=== PATIENT | female | born 1990 | race Caucasian/White ===

== ENCOUNTER → 2017-02-13 | Outpatient (CLI) | payer OTHER ==
[~2017-02-13] MED LIST: AMOXICILLIN500 M3 PO; AMOXIL500 MG PO; AUGMENTIN 875875 MG PO; BACTRIM DS 8001 TA1 PO; BACTROBAN CREAM15 GM T; CEPHALEXIN500 M1 PO; CIPRO250 MG PO; CLARITIN10 MG PO; DIFLUCAN150 MG PO; FLAGYL500 MG PO; FLONASE ALLERG9.9 ML NS; HYDROCODONE BIT1 T11 PO; KEFLEX500 M1 PO; MACROBID100 M1 PO; MOTRIN600 MG PO; MOTRIN800 MG PO; Motrin,Rufen800 MG PO; NKHM; PYRIDIUM200 M1 PO; PYRIDIUM200 MG PO; ULTRAM50 MG PO; ZOFRAN ODT4 MG SL
== END | disposition home or self-care (01) ==
LOC: US 16:51
DX: O20.0 Threatened abortion (principal); Z3A.08 8 weeks gestation of pregnancy

== ENCOUNTER 2017-12-02 08:24 | Emergency (ER) | payer OTHER ==
[~2017-12-02] VITALS: Wt 49.9 kg
[2017-12-02 08:37] VITALS: BP 113/68
[2017-12-02 08:54] LABS: BILIRUBIN NEGATIVE (NEGATIVE); BLOOD 2+ (NEGATIVE); CLARITY SL CLOUDY (CLEAR); COLOR YELLOW (YELLOW); GLUCOSE NEGATIVE (NEGATIVE); KETONE TRACE (NEGATIVE); LEUKO ESTERASE NEGATIVE (NEGATIVE); NITRITE POSITIVE (NEGATIVE); PH 5.5 (5.0-9.0); SPECIFIC GRAVITY 1.025 (1.005-1.030); UROBILINOGEN 0.2 E.U./dl (0.2-1.0)
[2017-12-02 09:02] LABS: BACTERIA 2+
[2017-12-02 09:10] LABS: BASO % 0.1 % (0.0-1.0); EOS # 0.2 10*3/uL (0.0-0.4); EOS % 1.9 % (1.0-4.0); HEMATOCRIT 39.8 % (37.0-47.0); HEMOGLOBIN 13.5 g/dl (12.0-16.0); LYMPH # 2.2 10*3/uL (1.3-4.4); MEAN CELL VOLUME 91.9 fl (81.0-99.0); MEAN CORPUSCULAR HGB 31.2 pg (27.0-31.0); MEAN CORPUSCULAR HGB CONC 33.9 g/dl (33.0-37.0); MEAN PLATELET VOLUME 9.7 fl (9.6-12.3); MONO # 0.8 10*3/uL (0.1-1.0); MONO % 9.9 % (3.0-9.0); NEUT # 4.7 10*3/uL (2.3-7.9); NEUT % 59.7 % (47.0-73.0); PLATELET COUNT AUTOMATED 175 10*3/uL (130-400); RED BLOOD COUNT 4.33 10*6/uL (4.10-5.10); RED CELL DISTRI WIDTH 11.9 % (0-14.5); WHITE BLOOD COUNT 7.8 10*3/uL (4.8-10.8)
[2017-12-02 09:20] LABS: BUN 14 mg/dl (7-24); CHLORIDE 103 mmol/L (98-107); CREATININE 0.87 mg/dL (0.55-1.02); POTASSIUM 3.7 mmol/L (3.5-5.1); SODIUM 137 mmol/L (136-145)
[2017-12-02] MEDS ORDERED: MACROBID100 M1 PO (10:39)
== END 2017-12-02 10:55 | disposition home or self-care (01) ==
LOC: ED 08:24
PROVIDERS: Emergency Medicine
DX: N39.0 Urinary tract infection, site not specified (principal); F17.200 Nicotine dependence, unspecified, uncomplicated; Z33.1 Pregnant state, incidental; Z3A.01 Less than 8 weeks gestation of pregnancy

== ENCOUNTER 2018-02-16 17:49 | Emergency (ER) | payer OTHER ==
[~2018-02-16] VITALS: Wt 53.5 kg
[2018-02-16 19:10] LABS: BILIRUBIN NEGATIVE (NEGATIVE); BLOOD 1+ (NEGATIVE); CLARITY SL CLOUDY (CLEAR); COLOR YELLOW (YELLOW); GLUCOSE NEGATIVE (NEGATIVE); KETONE NEGATIVE (NEGATIVE); LEUKO ESTERASE NEGATIVE (NEGATIVE); NITRITE NEGATIVE (NEGATIVE); SPECIFIC GRAVITY >= 1.030 (1.005-1.030); UROBILINOGEN 0.2 E.U./dl (0.2-1.0)
[2018-02-16 19:22] LABS: EPITHELIAL CELLS TNTC
[2018-02-16 19:23] LABS: BACTERIA 2+
[2018-02-16] MEDS ORDERED: AMOXICILLIN500 M2 PO (20:06)
[2018-02-16 20:19] VITALS: BP 127/77
== END 2018-02-16 20:12 | disposition home or self-care (01) ==
LOC: ED 17:49
PROVIDERS: Nurse Practitioner Family
DX: O26.891 Other specified pregnancy related conditions, first trimester (principal); N89.8 Other specified noninflammatory disorders of vagina; J02.9 Acute pharyngitis, unspecified; H66.92 Otitis media, unspecified, left ear; Z79.899 Other long term (current) drug therapy; Z3A.13 13 weeks gestation of pregnancy

== ENCOUNTER → 2018-02-18 | Outpatient (CLI) | payer OTHER ==
[~2018-02-18] MED LIST changes: +AMOXICILLIN500 M2 PO
== END | disposition home or self-care (01) ==
LOC: US 12:51
DX: Z34.81 Encounter for supervision of other normal pregnancy, first trimester (principal); Z3A.16 16 weeks gestation of pregnancy

== ENCOUNTER → 2018-04-01 | Outpatient (CLI) | payer OTHER | END | disposition home or self-care (01) | LOC: US 16:49 | DX: Z34.82 Encounter for supervision of other normal pregnancy, second trimester (principal); Z3A.22 22 weeks gestation of pregnancy ==

== ENCOUNTER 2018-05-21 17:31 | Emergency (ER) | payer OTHER ==
[~2018-05-21] VITALS: Ht 160 cm; Wt 62.1 kg
[2018-05-21 17:35] VITALS: BP 102/68
[2018-05-21] MEDS ORDERED: CEPHALEXIN500 M1 PO (18:25)
== END 2018-05-21 18:35 | disposition home or self-care (01) ==
LOC: ED 17:31
DX: O98.813 Other maternal infectious and parasitic diseases complicating pregnancy, third trimester (principal); L02.211 Cutaneous abscess of abdominal wall; Z3A.29 29 weeks gestation of pregnancy

== ENCOUNTER 2018-06-10 13:05 | Emergency (ER) | payer OTHER ==
[~2018-06-10] VITALS: Ht 160 cm; Wt 63.5 kg
[2018-06-10 13:09] VITALS: BP 120/61
[2018-06-10 13:31] LABS: BILIRUBIN NEGATIVE (NEGATIVE); BLOOD NEGATIVE (NEGATIVE); CLARITY SL CLOUDY (CLEAR); COLOR YELLOW (YELLOW); GLUCOSE NEGATIVE (NEGATIVE); KETONE NEGATIVE (NEGATIVE); LEUKO ESTERASE TRACE (NEGATIVE); NITRITE NEGATIVE (NEGATIVE); PH 6.5 (5.0-9.0); UROBILINOGEN 0.2 E.U./dl (0.2-1.0)
[2018-06-10 14:12] LABS: HEMATOCRIT 33.7 % (37.0-47.0); HEMOGLOBIN 11.1 g/dl (12.0-16.0); MEAN CELL VOLUME 94.1 fl (81.0-99.0); MEAN CORPUSCULAR HGB CONC 32.9 g/dl (33.0-37.0); MEAN PLATELET VOLUME 10.3 fl (9.6-12.3); PLATELET COUNT AUTOMATED 155 10*3/uL (130-400); RED BLOOD COUNT 3.58 10*6/uL (4.10-5.10); RED CELL DISTRI WIDTH 13.2 % (0-14.5)
[2018-06-10 14:18] LABS: BACTERIA 3+; EPITHELIAL CELLS 16-20; RBC 0-2 rbc/hpf (0-2); WBC 41-50 wbc/hpf (0-5)
[2018-06-10 14:28] LABS: ALBUMIN 3.1 gm/dl (3.1-4.5); ALKALINE PHOSPHATASE 106 U/L (45-117); BUN 13 mg/dl (7-24); CHLORIDE 105 mmol/L (98-107); CREATININE 0.71 mg/dL (0.55-1.02); POTASSIUM 3.9 mmol/L (3.5-5.1); SGOT/AST 17 IU/L (3-35); SGPT/ALT 24 U/L (12-78); SODIUM 137 mmol/L (136-145)
[2018-06-10 14:34] LABS: TOTAL CELLS COUNTED 100 #CELLS
[2018-06-10 14:35] LABS: PLATELET SUFFICIENCY NORMAL (NORMAL)
[2018-06-10] MEDS ORDERED: AMINOPHYLLIN200 MG PO (15:03)
== END 2018-06-10 15:35 | disposition short-term general hospital (02) ==
LOC: ED 13:05
PROVIDERS: Physician Assistant
DX: O23.33 Infections of other parts of urinary tract in pregnancy, third trimester (principal); Z3A.32 32 weeks gestation of pregnancy

== ENCOUNTER 2019-05-26 11:46 | Emergency (ER) | payer OTHER ==
[~2019-05-26] VITALS: Ht 157.4 cm; Wt 49.9 kg
[~2019-05-26 11:46] MED LIST changes: +AMINOPHYLLIN200 MG PO
[2019-05-26 11:47] VITALS: BP 122/57
[2019-05-26 12:46] LABS: BILIRUBIN NEGATIVE (NEGATIVE); BLOOD TRACE-INTACT (NEGATIVE); CLARITY CLOUDY (CLEAR); COLOR YELLOW (YELLOW); GLUCOSE NEGATIVE (NEGATIVE); KETONE NEGATIVE (NEGATIVE); LEUKO ESTERASE TRACE (NEGATIVE); NITRITE POSITIVE (NEGATIVE); SPECIFIC GRAVITY 1.025 (1.005-1.030); UROBILINOGEN 0.2 E.U./dl (0.2-1.0)
[2019-05-26 13:02] LABS: BACTERIA 4+
[2019-05-26] MEDS ORDERED: DIFLUCAN150 MG PO (13:10)
[2019-05-26] MEDS ORDERED: LEVOFLOXACIN250 M2 PO (13:10)
== END 2019-05-26 13:11 | disposition home or self-care (01) ==
LOC: ED 11:46
PROVIDERS: Emergency Medicine
DX: N39.0 Urinary tract infection, site not specified (principal)

== ENCOUNTER 2020-01-01 01:34 | Emergency (ER) | payer OTHER ==
[~2020-01-01] VITALS: Ht 157.4 cm; Wt 49.9 kg
[~2020-01-01 01:34] MED LIST changes: +LEVOFLOXACIN250 M2 PO
[2020-01-01 02:19] LABS: BILIRUBIN NEGATIVE (NEGATIVE); BLOOD TRACE-INTACT (NEGATIVE); CLARITY SL CLOUDY (CLEAR); COLOR YELLOW (YELLOW); GLUCOSE NEGATIVE (NEGATIVE); KETONE NEGATIVE (NEGATIVE); LEUKO ESTERASE NEGATIVE (NEGATIVE); NITRITE POSITIVE (NEGATIVE); PH 6.5 (5.0-9.0); SPECIFIC GRAVITY 1.025 (1.005-1.030); UROBILINOGEN 0.2 E.U./dl (0.2-1.0)
[2020-01-01 02:27] LABS: BACTERIA 4+
[2020-01-01 02:28] LABS: WBC 0-2 wbc/hpf (0-5)
[2020-01-01 02:33] LABS: BASO % 0.1 % (0.0-1.0); EOS # 0.2 10*3/uL (0.0-0.4); HEMATOCRIT 36.3 % (37.0-47.0); HEMOGLOBIN 11.9 g/dl (12.0-16.0); LYMPH # 2.2 10*3/uL (1.3-4.4); LYMPH % 14.3 % (27.0-41.0); MEAN CELL VOLUME 91.4 fl (81.0-99.0); MEAN CORPUSCULAR HGB CONC 32.8 g/dl (33.0-37.0); MEAN PLATELET VOLUME 10.2 fl (9.6-12.3); MONO # 0.9 10*3/uL (0.1-1.0); MONO % 5.6 % (3.0-9.0); NEUT % 78.6 % (47.0-73.0); PLATELET COUNT AUTOMATED 197 10*3/uL (130-400); RED BLOOD COUNT 3.97 10*6/uL (4.10-5.10); RED CELL DISTRI WIDTH 11.9 % (0-14.5); WHITE BLOOD COUNT 15.3 10*3/uL (4.8-10.8)
[2020-01-01 02:48] LABS: ALBUMIN 3.9 gm/dl (3.1-4.5); ALKALINE PHOSPHATASE 59 U/L (45-117); BUN 17 mg/dl (7-24); CHLORIDE 109 mmol/L (98-107); CREATININE 1.04 mg/dL (0.55-1.02); LIPASE 90 U/L (73-393); POTASSIUM 3.6 mmol/L (3.5-5.1); SGOT/AST 13 IU/L (3-35); SGPT/ALT 30 U/L (12-78); SODIUM 140 mmol/L (136-145)
[2020-01-01 05:26] VITALS: BP 115/67
== END 2020-01-01 06:11 | disposition short-term general hospital (02) ==
LOC: ED 01:34
PROVIDERS: Emergency Medicine Emergency Medical Services
DX: O00.90 Unspecified ectopic pregnancy without intrauterine pregnancy (principal); R42 Dizziness and giddiness; Z3A.01 Less than 8 weeks gestation of pregnancy; Z79.2 Long term (current) use of antibiotics

== ENCOUNTER → 2020-03-02 | Outpatient (CLI) | payer OTHER | END | disposition home or self-care (01) | LOC: US 02-18 11:00 | DX: N60.01 Solitary cyst of right breast (principal) ==

== ENCOUNTER → 2020-08-16 | Outpatient (CLI) | payer OTHER | END | disposition home or self-care (01) | LOC: LAB 15:20 | PROVIDERS: ATTEND Internal Medicine Nephrology | DX: Z23 Encounter for immunization (principal) ==

== ENCOUNTER → 2020-08-28 | Outpatient (CLI) | payer OTHER | END | disposition home or self-care (01) | LOC: COVID19 02:44 | PROVIDERS: ATTEND Internal Medicine Nephrology | DX: Z20.828 Contact with and (suspected) exposure to other viral communicable diseases (principal) ==

== ENCOUNTER 2021-02-07 20:16 | Emergency (ER) | payer OTHER ==
[~2021-02-07] VITALS: Ht 160 cm; Wt 52.2 kg
[2021-02-07 20:24] VITALS: BP 133/86
== END 2021-02-07 20:38 | disposition home or self-care (01) ==
LOC: ED 20:16
DX: L30.9 Dermatitis, unspecified (principal); Z79.899 Other long term (current) drug therapy

== ENCOUNTER 2022-06-24 11:14 | Emergency (ER) | payer OTHER ==
[~2022-06-24] VITALS: Ht 157.4 cm; Wt 54.4 kg
[2022-06-24 11:32] VITALS: BP 128/88
[2022-06-24] MEDS ORDERED: VALTREX1000 MG PO (11:47)
== END 2022-06-24 12:03 | disposition home or self-care (01) ==
LOC: ED 11:14
DX: B00.1 Herpesviral vesicular dermatitis (principal); F17.200 Nicotine dependence, unspecified, uncomplicated